=== PATIENT | male | born 1995 | race Caucasian/White ===

== ENCOUNTER 2017-07-10 22:34 | Emergency (ER) | payer OTHER ==
--- NOTE | 2017-07-11 01:18 | Cat Scan Report ---
FINAL REPORT EXAM: CT FACIAL BONES WO CON HISTORY: face and nose injury TECHNIQUE: Routine axial imaging was obtained of the facial bones without IV contrast with sagittal and coronal reconstructions. FINDINGS: There is an acute mildly depressed fracture of the left side of the nasal bone with overlying soft tissue swelling. The zygomatic arches and mandible appear intact. The orbital rims and floors appear intact. The sinuses reveal mucosal thickening in the right maxillary sinus. The remaining sinuses are clear. The turbinates reveal pneumatization of the middle turbinates compatible with bilateral mayuri bullosa. IMPRESSION: Acute depressed fracture of the left side of the nasal bone with overlying soft tissue swelling. Localized mucosal thickening in the right maxillary sinus. Bilateral mayuri bullosa.
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
[2017-07-11 04:24] VITALS: BP 146/84
== END 2017-07-11 03:24 | disposition home or self-care (01) ==
LOC: ED 22:34
DX: S02.2XXA Fracture of nasal bones, initial encounter for closed fracture (principal); Y04.0XXA Assault by unarmed brawl or fight, initial encounter; Y93.89 Activity, other specified; Y99.8 Other external cause status; Y92.89 Other specified places as the place of occurrence of the external cause
CPT/HCPCS: 70486